=== PATIENT | female | born 1945 | race Caucasian/White ===

== ENCOUNTER → 2021-03-15 14:58 | Outpatient (BNVA) | payer OTHER, SELFPAY | PROVIDERS: PCP Internal Medicine; Visit Provider Surgery ==

== ENCOUNTER 2022-04-05 12:19 | Outpatient (RCR) | payer OTHER, SELFPAY ==
--- NOTE | ~2022-04-05 | XR_ITS ---
EXAMINATION: XR ANKLE, RIGHT CLINICAL INFORMATION: History of fracture; medial ankle ulcer. COMPARISON: None TECHNIQUE: AP, lateral, and mortise views of the right ankle. FINDINGS: There is bony demineralization. There is marked osteoarthritic change of the tibiotalar joint, with joint space irregularity and exuberant peripheral osteophyte formation. There is are orthopedic screws applied to the distal tibia. Old, healed fractures of the distal tibia and fibula are noted, with bony remodeling. No acute fracture, dislocation or joint effusion is seen. Boehler's angle is normal. There are small posterior and large plantar calcaneal spurs. There are degenerative changes of the dorsal midfoot. There is no abnormal bone erosion. There are diffuse soft tissue calcifications, suggesting venous stasis. Pressure dressing material is applied to the ankle. No soft tissue gas or foreign body is seen. XR/XR ankle RT min 3V IMPRESSION: There are degenerative and postoperative changes, as detailed. There is are soft tissue calcifications consistent with venous stasis. Pressure dressing material is noted. No soft tissue gas or foreign body is noted. There is no abnormal bone erosion.
== END 2023-01-31 09:36 | disposition home or self-care (01) ==
LOC: HO.WCC 12:19
PROVIDERS: Visit Provider Physician Assistant
DX: Z09 Encounter for follow-up examination after completed treatment for conditions other than malignant neoplasm (principal); I87.301 Chronic venous hypertension (idiopathic) without complications of right lower extremity; I73.9 Peripheral vascular disease, unspecified; G62.9 Polyneuropathy, unspecified; R73.03 Prediabetes; E46 Unspecified protein-calorie malnutrition; Z85.3 Personal history of malignant neoplasm of breast; Z92.21 Personal history of antineoplastic chemotherapy; Z92.3 Personal history of irradiation; Z87.2 Personal history of diseases of the skin and subcutaneous tissue
CPT/HCPCS: 11042; 11044; 11045; 73610; 88304; 97597; 99212

== ENCOUNTER 2022-10-02 10:03 | Outpatient (REF) | payer OTHER, SELFPAY ==
--- NOTE | ~2022-10-02 | CT_ITS ---
EXAMINATION: CT LOWER LEG WITH CONTRAST, RIGHT CLINICAL INFORMATION: Nonpressure ulcer of right leg. Chronic. COMPARISON: Ankle radiographs 05/17/2022. TECHNIQUE: CT of the right lower leg is performed following intravenous administration of 85 mL Omnipaque 350 iodinated contrast. Sagittal and coronal reformats were performed. This CT examination was performed using dose optimization techniques as appropriate, variously including the following: *Automated exposure control *Adjustment of mA and/or kV according to patient size (this includes techniques or standardized protocols for targeted exams where dose is matched to indication/reason for exam; i.e. extremities or head) *Use of iterative reconstruction technique DLP: 427 mGy-cm. FINDINGS: There is diffuse subcutaneous edema of the lower leg with patchy calcifications circumferentially within the subcutaneous fat likely due to chronic venous stasis. Healed trimalleolar fracture with medial tibial screws. 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 This includes chronic remodeling and large osteophytes, likely restricting mobility. Posterior calcaneal enthesophyte and large heel spur. There is a shallow serration at the medial aspect of the distal lower leg. No peripherally enhancing collection to indicate an abscess. No active cortical erosion or periosteal reaction to suggest underlying osteomyelitis. CT/CT lower leg RT w IV con IMPRESSION: No evidence of osteomyelitis. No abscess. 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 Healed trimalleolar fracture with medial tibial screws. Diffuse subcutaneous edema with patchy calcifications likely due to chronic venous stasis.
[2022-10-03 13:17] LABS: Creatinine POC 0.5 mg/dL (0.5-1.4); GFR POC 60
== END 2022-10-02 10:04 | disposition home or self-care (01) ==
LOC: HO.CT 10:03
PROVIDERS: PCP Internal Medicine; Visit Provider Physician Assistant
DX: I87.2 Venous insufficiency (chronic) (peripheral) (principal); L97.812 Non-pressure chronic ulcer of other part of right lower leg with fat layer exposed
CPT/HCPCS: 73701; 82565

== ENCOUNTER 2023-04-10 10:05 | Outpatient (AMB) | payer OTHER, SELFPAY ==
--- NOTE | 2023-04-10 10:02 | MHC.OFFVIS ---
Intake Vital Signs 04/10/23 10:13 Height 5 ft 6 in Weight 205 lb 4 oz BMI 33.1 BP 163/76 H Blood Pressure Location Lt brachial Position Sitting Pulse 65 Intake Visit Reasons: Yearly Breast Exam Intake Note: Patient is seen in office for yearly breast exam. 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 Levin to Dr. Kimble returning for follow-up breast examination. She was diagnosed with infiltrating ductal carcinoma of the right breast and previously underwent a right lumpectomy with axillary dissection in 2002 in [place]. She was subsequently treated with chemotherapy and radiation therapy. She developed a recurrence of the right breast cancer in 2009 and subsequently underwent a right mastectomy. This revealed a 4.1 cm infiltrating ductal carcinoma, ER [place] and HER2 Amaya negative. Margins were free of tumor. The patient returns today for follow-up breast examination. Her most recent mammogram performed on 07/23/2022 [facility] revealed no suspicious findings in the left breast (BI-RADS 2). Previously identified lymph nodes in the left axilla on chest CT from an outside institution were not identified on the current diagnostic mammogram. She previously reported 100 lb weight loss but subsequently underwent surgery for scar tissue and has now regained her weight. She reports that approximately 60 lb weight loss over the past 6 months due to a digestive issue which has not been identified. She denies any new breast symptoms. She is scheduled for a follow-up mammogram at [facility] in July 2023. [facility] Surgical History History of surgery (07/2022) History of cardiac radiofrequency ablation (RFA) History of appendectomy (1967) History of hysterectomy (1990) History of lumpectomy of right breast (2001) History of total mastectomy of right breast (2009) History of cholecystectomy (2014) Family History Father Stomach cancer, Onset Age: 58 Mother No problems noted. Paternal Aunt Lung cancer, Onset Age: 70 Breast cancer Maternal Aunt Cancer of kidney, Onset Age: 80 Social History Alcohol intake: current Alcohol intake frequency: holidays/special occasions only Patient Tobacco Use Status: Never used Tobacco Review of Systems Const All systems reviewed & are unremarkable except as noted in HPI and below Reports weight loss ENT Reports dysphagia GI Reports dysphagia Denies nipple discharge Skin/Breast Reports system reviewed and no additional complaints, except as documented, Denies breast swelling, Denies breast skin changes, Denies breast pain, Denies breast mass and Denies nipple discharge Domenic/Lymph Denies lymphadenopathy Physical Exam Const General: healthy appearing, no acute distress and well developed Nutritional Appearance: well nourished Orientation/consciousness: patient oriented x3 Limitations: no limitations HEENT Head: Yes normocephalic and Yes atraumatic Neck Neck: Yes full ROM, Yes trachea midline, Yes supple and Yes no JVD Thyroid: Thyroid normal Lymphatic: no lymphadenopathy noted Chest Other: Left breast: No skin change, no nipple retraction, no nipple discharge, no palpable mass, no enlarged lymph nodes. Right breast: Mastectomy scar is clean and intact. No subcutaneous nodules identified. Resp Effort & Inspection: normal respiratory effort, no audible wheezes and no cough Auscultation: clear to auscultation bilaterally GI Inspection: Yes normal to inspection Skin General skin exam: no rashes or lesions noted Neuro General: patient oriented x3 Extrem General: Yes no clubbing, cyanosis or edema Assessment & Plan Assessment & Plan (1) Infiltrating ductal carcinoma of right breast: Code(s): C50.911 - Malignant neoplasm of unspecified site of right female breast (2) History of total mastectomy of right breast: Onset Date: 2009 Code(s): Z90.11 - Acquired absence of right breast and nipple Plan 77-year-old female patient with a previous history of invasive ductal carcinoma of the right breast with a recurrence in 2009 necessitating a right mastectomy. She feels well except for weight loss and denies any ongoing left breast symptoms. She denies any changes in her right chest. She has requested a new prescription for a breast prosthesis and bra. Examination today reveals no suspicious findings in the left breast, no enlarged lymph nodes or the right chest wall. She is scheduled for a follow-up mammogram in July 2023 [facility]. She should return in 1 year for follow-up breast examination, sooner p.r.n.. Coding Level of Care Code Est Pt Level 3 (35557) Diagnoses Infiltrating ductal carcinoma of right breast C50.911 History of total mastectomy of right breast Z90.11
[2023-04-10 10:13] VITALS: BP 163/76; PULSE 65; BMI 33.1
== END 2023-04-10 10:27 | disposition home or self-care (01) ==
PROVIDERS: PCP Internal Medicine; Visit Provider Surgery
DX: Z85.3 Personal history of malignant neoplasm of breast (principal); Z90.11 Acquired absence of right breast and nipple
CPT/HCPCS: 99213

== ENCOUNTER → 2023-04-10 10:05 | Outpatient (BNVA) | payer OTHER, SELFPAY | PROVIDERS: PCP Internal Medicine; Visit Provider Surgery ==

== ENCOUNTER 2024-04-15 10:09 | Outpatient (AMB) | payer OTHER, SELFPAY ==
--- NOTE | 2024-04-15 10:27 | A.OFFVIS_ITS ---
Vital Signs 04/15/24 10:33 Height 5 ft 5 in Weight 242 lb 6 oz BMI 40.3 BP 141/85 H Blood Pressure Location Lt brachial Position Sitting Pulse 73 Intake Visit Reasons: Yearly Breast Exam Intake Note: Patient is seen in office for yearly breast exam. 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 coagulans)) cells PO calcium carb and citrate-vitD3 600 mg-12.5 mcg (500 unit) ER tabs PO furosemide 20 mg PO DAILY [mastectomy bras x 2 As directed] potassium chloride ER 20 mEq PO DAILY [right breast prosthetic As directed] vitamin B complex 1 tab PO DAILY HPI Comments Details: 78-year-old female patient, previous patient of Dr. Levin and Dr. Kimble returning for follow-up breast examination. She was diagnosed with infiltrating ductal carcinoma of the right breast and previously underwent a right lumpectomy with axillary dissection in 2002 in [place]. She was subsequently treated with chemotherapy and radiation therapy. She developed a recurrence of the right breast cancer in 2009 and subsequently underwent a right mastectomy. This revealed a 4.1 cm infiltrating ductal carcinoma, ER [place] and HER2 Amaya negative. Margins were free of tumor. The patient returns today for follow-up breast examination. Her most recent mammogram performed on 07/28/2023 [facility] revealed no suspicious findings in the left breast (BI-RADS 2). She denies any new breast symptoms. [facility] Surgical History History of surgery (07/2022) History of cardiac radiofrequency ablation (RFA) History of appendectomy (1967) History of hysterectomy (1990) History of lumpectomy of right breast (2001) History of total mastectomy of right breast (2009) History of cholecystectomy (2014) Family History Father Stomach cancer, Onset Age: 58 Mother No problems noted. Paternal Aunt Lung cancer, Onset Age: 70 Breast cancer Maternal Aunt Cancer of kidney, Onset Age: 80 Social History Alcohol intake: current Alcohol intake frequency: holidays/special occasions only Patient Tobacco Use Status: Never used Tobacco Review of Systems Const All systems reviewed & are unremarkable except as noted in HPI and below Reports weight loss ENT Reports dysphagia GI Reports dysphagia Denies nipple discharge Skin/Breast Reports system reviewed and no additional complaints, except as documented, Denies breast swelling, Denies breast skin changes, Denies breast pain, Denies breast mass and Denies nipple discharge Domenic/Lymph Denies lymphadenopathy Physical Exam Vital Signs: Last Vital Signs Pulse 73 04/15/24 10:33 BP 141/85 H 04/15/24 10:33 BMI result Body Mass Index 40.3 Const General: healthy appearing, no acute distress and well developed Nutritional Appearance: well nourished Orientation/consciousness: patient oriented x3 Limitations: no limitations HEENT Head: Yes normocephalic and Yes atraumatic Neck Neck: Yes full ROM, Yes trachea midline, Yes supple and Yes no JVD Thyroid: Thyroid normal Lymphatic: no lymphadenopathy noted Chest Other: Left breast: No skin change, no nipple retraction, no nipple discharge, no palpable mass, no enlarged lymph nodes. Right breast: Mastectomy scar is clean and intact. No subcutaneous nodules identified. No lymphadenopathy Resp Effort & Inspection: normal respiratory effort, no audible wheezes and no cough Auscultation: clear to auscultation bilaterally GI Inspection: Yes normal to inspection Skin General skin exam: no rashes or lesions noted Neuro Other: Mobility Assessment: 1. 3 meter assessment time (seconds): 6 2. Gait observations: Normal balance and gait General: patient oriented x3 Extrem General: Yes no clubbing, cyanosis or edema Assessment & Plan Assessment & Plan (1) Infiltrating ductal carcinoma of right breast: Code(s): C50.911 - Malignant neoplasm of unspecified site of right female breast Category: Medical (2) History of total mastectomy of right breast: Onset Date: 2009 Code(s): Z90.11 - Acquired absence of right breast and nipple Category: Surgical Plan 78-year-old female patient with a previous history of invasive ductal carcinoma of the right breast with a recurrence in 2009 necessitating a right mastectomy. She feels well except for weight loss and denies any ongoing left breast symptoms. She denies any changes in her right chest. She has requested a new prescription for a breast prosthesis and bra. Examination today reveals no suspicious findings in the left breast, no enlarged lymph nodes or the right chest wall. Her most recent left mammogram dated 07/28/2023 performed at [facility] revealed no mammographic evidence of malignancy (BI-RADS 2). She should return in 1 year for follow-up breast examination, sooner p.r.n.. Coding Level of Care Code Est Pt Level 3 (39307) Diagnoses Infiltrating ductal carcinoma of right breast C50.911 History of total mastectomy of right breast Z90.11
[2024-04-15 10:33] VITALS: BP 141/85; PULSE 73; BMI 40.3
== END 2024-04-15 10:51 | disposition home or self-care (01) ==
PROVIDERS: PCP Internal Medicine; Visit Provider Surgery
DX: C50.911 Malignant neoplasm of unspecified site of right female breast (principal); Z90.11 Acquired absence of right breast and nipple
CPT/HCPCS: 99213

== ENCOUNTER → 2024-04-15 10:09 | Outpatient (BNVA) | payer OTHER, SELFPAY | PROVIDERS: PCP Internal Medicine; Visit Provider Surgery ==

== ENCOUNTER 2025-04-19 10:30 | Outpatient (AMB) | payer OTHER, SELFPAY ==
--- NOTE | 2025-04-19 10:34 | MHC.OFFVIS ---
Vital Signs 04/19/25 10:41 Height 5 ft 5 in Weight 245 lb BMI 40.8 BP 131/62 Blood Pressure Location Lt radial Position Sitting Pulse 76 Intake Visit Reasons: Yearly Breast Exam Intake Note: Patient is seen in office for yearly breast exam. Hx of Rt breast mastectomy in 2009. Pt c/o: no concerns w/ breast. Denies lumps, bumps, tenderness, itch, nipple discharge. 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 Levin and Dr. Kimble returning for follow-up breast examination. She was diagnosed with infiltrating ductal carcinoma of the right breast and previously underwent a right lumpectomy with axillary dissection in 2002 in [place]. She was subsequently treated with chemotherapy and radiation therapy. She developed a recurrence of the right breast cancer in 2009 and subsequently underwent a right mastectomy. This revealed a 4.1 cm infiltrating ductal carcinoma, ER CT and HER2 Amaya negative. Margins were free of tumor. The patient returns today for follow-up breast examination. Her most recent mammogram performed on 07/28/2024 at [facility] revealed no suspicious findings in the left breast (BI-RADS 1). She denies any new breast symptoms. [facility] Surgical History History of surgery (07/2022) History of cardiac radiofrequency ablation (RFA) History of appendectomy (1967) History of hysterectomy (1990) History of lumpectomy of right breast (2001) History of total mastectomy of right breast (2009) History of cholecystectomy (2014) Family History Father Stomach cancer, Onset Age: 58 Mother No problems noted. Paternal Aunt Lung cancer, Onset Age: 70 Breast cancer Maternal Aunt Cancer of kidney, Onset Age: 80 Social History Alcohol intake: current Alcohol intake frequency: holidays/special occasions only Patient Tobacco Use Status: Never used Tobacco Review of Systems Const All systems reviewed & are unremarkable except as noted in HPI and below Reports weight loss ENT Reports dysphagia GI Reports dysphagia Denies nipple discharge Skin/Breast Reports system reviewed and no additional complaints, except as documented, Denies breast swelling, Denies breast skin changes, Denies breast pain, Denies breast mass and Denies nipple discharge Domenic/Lymph Denies lymphadenopathy Physical Exam Vital Signs: Last Vital Signs Pulse 76 04/19/25 10:41 BP 131/62 04/19/25 10:41 BMI result Body Mass Index 40.8 Const General: healthy appearing, no acute distress and well developed Nutritional Appearance: well nourished Orientation/consciousness: patient oriented x3 Limitations: no limitations HEENT Head: Yes normocephalic and Yes atraumatic Neck Neck: Yes full ROM, Yes trachea midline, Yes supple and Yes no JVD Thyroid: Thyroid normal Lymphatic: no lymphadenopathy noted Chest Other: Left breast: No skin change, no nipple retraction, no nipple discharge, no palpable mass, no enlarged lymph nodes. Right breast: Mastectomy scar is clean and intact. No subcutaneous nodules identified. No lymphadenopathy Chest/axillae images:  1. Resp Effort & Inspection: normal respiratory effort, no audible wheezes and no cough Auscultation: clear to auscultation bilaterally GI Inspection: Yes normal to inspection Skin General skin exam: no rashes or lesions noted Neuro Other: Mobility Assessment: 1. 3 meter assessment time (seconds): 7 2. Gait observations: Normal balance and gait General: patient oriented x3 Extrem General: Yes no clubbing, cyanosis or edema Assessment & Plan Assessment & Plan (1) Infiltrating ductal carcinoma of right breast: Code(s): C50.911 - Malignant neoplasm of unspecified site of right female breast Category: Medical (2) History of total mastectomy of right breast: Onset Date: 2009 Code(s): Z90.11 - Acquired absence of right breast and nipple Category: Surgical Plan 79-year-old female patient with a previous history of invasive ductal carcinoma of the right breast with a recurrence in 2009 necessitating a right mastectomy. She feels well except for weight loss and denies any ongoing left breast symptoms. She denies any changes in her right chest. She has requested a new prescription for a breast prosthesis and bra. Examination today reveals no suspicious findings in the left breast, no enlarged lymph nodes or the right chest wall. Her most recent left mammogram dated 07/28/2024 performed at [facility] revealed no mammographic evidence of malignancy (BI-RADS 1). She should return in 1 year for follow-up breast examination, sooner p.r.n.. Medications: Refilled [mastectomy bras x 2] As directed 2 ea 0RF Z90.11 - Acquired absence of right breast and nipple [right breast prosthetic] As directed 1 ea 0RF Z90.11 - Acquired absence of right breast and nipple Coding Level of Care Code Est Pt Level 3 (97630) Complex EM visit Add On G2211 Diagnoses Infiltrating ductal carcinoma of right breast C50.911 History of total mastectomy of right breast Z90.11
[2025-04-19 10:41] VITALS: BP 131/62; PULSE 76; BMI 40.8
--- OUTSIDE RECORDS SUMMARY | 2025-04-19 11:42 | XMS_ITS | Clinical Summary ---
Author Organization [facility] Address [address] [place] [address] Phone Care Team Providers Care Regional Office Coordinator Name Role Phone Derian Murphy MD Primary Care Provider [phone] Surgical History Surgery Date Site/Laterality Comments HYSTERECTOMY Medical History Medical History Date Comments Breast cancer ([facility] V24, [facility] V28) Family History Medical History Relation Name Comments Breast cancer Father's Sister Relation Name Status Comments Father's Sister Alive Social History Tobacco Use Types Packs/Day Years Used Date Smoking Tobacco: Never Assessed Comments No Sex and Gender Information Value Date Recorded Sex Assigned at Not on file Legal Sex Female 4:41 PM EST Gender Identity Not on file Sexual Orientation Not on file Obstetrics History Para Term AB IAB SAB Ectopic Multiple Livin g Live Births 2 Last Filed Vital Signs Vital Sign Reading Time Taken Comments Blood Pressure - - Pulse - - Temperature - - Respiratory Rate - - Oxygen Saturation - - Inhaled Oxygen Concentration - - Weight 99.8 kg (220 lb) 07/28/2024 1:00 PM EST Height 165.1 cm (5' 5 ) 07/28/2024 1:00 PM EST Body Mass Index 36.61 07/28/2024 1:00 PM EST Plan of Treatment Upcoming Encounters Date Type Department Care Team (Late st Contact Info) Description 07/29/2025 1:00 PM EST [facility]ointment [facility] [address] [address] Health Maintenance Due Date Last Done Comments RSV Immunization Adult Patients (1 - 1-dose 75+ series) 10/23/2019 Zoster Vaccines (3 of 3) 05/16/2020 020, 07/19/2014, 04/20/2014 Cholesterol Screening (Lipid Panel) 06/19/2022 Falls Risk Assessment 06/19/2022 Medicare Annual Wellness Visit 06/19/2022 Osteoporosis Screening (Bone Density Screening) 06/19/2022 Social Influencers of Health Screening 06/19/2022 DTaP,Tdap,and Td Vaccines (2 - Td or Tdap) 03/02/2024 03/02/2014 Depression Screening 07/21/2024 Hypertension/CHF/CAD Annual BMP Blood Test 07/28/2024 COVID-19 Vaccine ( season) 2025 05/27/2023, 11/12/2022, 04/24/2021, Additional history exists Influenza Vaccine (#1) 2025 , 04/30/2023, 04/29/2023, Additional history exists Pneumococcal Vaccine: 50+ Years Completed 05/03/2015, 04/04/2015, 03/02/2014 HIB Vaccines Aged Out No longer eligi ble based on patient's age to complete this topic HPV Vaccines Aged Out No longer eligi ble based on patient's age to complete this topic Hepatitis A Vaccines Aged Out No long er eligible based on patient's age to complete this topic Hepatitis B Vaccines Aged Out No long er eligible based on patient's age to complete this topic IPV Vaccines Aged Out No longer eligi ble based on patient's age to complete this topic MMR Vaccines Aged Out No longer eligi ble based on patient's age to complete this topic Meningococcal ACWY Vaccine Aged Out N o longer eligible based on patient's age to complete this topic Meningococcal B Vaccine Aged Out No l onger eligible based on patient's age to complete this topic RSV Immunization Patients Under 20 months Aged Out No longer eligible based on patient's age to complete this topic Varicella Vaccines Aged Out No longer eligible based on patient's age to complete this topic Insurance [employer] MEDICARE Care Teams Regional Office Coordinator Relationship Specialty Start Date End Date Derian Murphy MD [address] [place], [place] [id number] PCP - General Internal Medicine 07/28/24
--- OUTSIDE RECORDS SUMMARY | 2025-04-19 11:42 | XMS_ITS | Clinical Summary ---
Author Organization [facility] Address [address] [place] [address] Care Team Providers Care Dock Coordinator Name Role Phone Unknown, Provider Primary Care Provider Unava ilable Allergies No known active allergies Medications verapamil (CALAN-SR) 180 mg CR tablet Take 180 mg by mouth daily. Active irbesartan-hydro chlorothiazide (AVALIDE) 150-12.5 mg per tablet Take 1 Tab by mouth daily. Active potassium chloride SA (K-DUR, KLOR-CON M20) 20 mEq tablet Take 20 mEq by mouth daily. Active calcium carbonate (OS-NATHAN) 500 mg (1,250 mg) tablet Take 1 Tab by mouth daily. Active Medical History Medical History Date Comments CAD (coronary artery disease) sv t Hypertension Social History Tobacco Use Types Packs/Day Years Used Date Smoking Tobacco: Never Alcohol Use Standard Drinks/Week Comments Yes 0 (1 standard drink = 0.6 oz pur e alcohol) rarely Comments Unknown Sex and Gender Information Value Date Recorded Sex Assigned at Not on file Legal Sex Female 18:46 EST Gender Identity Not on file Sexual Orientation Not on file Obstetrics History Last Filed Vital Signs Vital Sign Reading Time Taken Comments Blood Pressure 92/59 03/01/2009 0836 EDT Pulse 77 03/01/2009 0836 EDT Temperature 35.1 C (95.2 F) 03/01/2009 0738 EDT Respiratory Rate 16 03/01/2009 0836 EDT Oxygen Saturation - - Inhaled Oxygen Concentration - - Weight - - Height - - Body Mass Index - - Plan of Treatment Health Maintenance Due Date Last Done Comments Fall Risk Screening 2009 RSV Immunization ( o r 60+ Years) (1 - 1-dose 75+ series) 10/23/2019 COVID-19 Vaccine (2023-25 season) 2024 Care Teams Dock Coordinator Relationship Specialty Start Date End Date Unknown, Provider, PCP - General 03/01/09
== END 2025-04-19 10:50 | disposition home or self-care (01) ==
LOC: HO.HGS 10:31
PROVIDERS: PCP Internal Medicine; Visit Provider Surgery
DX: C50.911 Malignant neoplasm of unspecified site of right female breast (principal); Z90.11 Acquired absence of right breast and nipple
CPT/HCPCS: 99213